=== PATIENT | male | born 1950 | race Caucasian/White ===

== ENCOUNTER 2019-01-11 08:39 | Observation (INO) | payer OTHER, MEDICARE ==
[~2019-01-11] VITALS: Ht 180.3 cm; Wt 97.7 kg
--- NOTE | 2019-01-11 08:39 | NUR ---
PT TO ROOM 9 VIA WC ABLE TO STAND AND TRANSFER SELF TO STRETCHER.
[2019-01-11] MEDS ORDERED: HYDROCHLOROT25 MG PO (08:52)
[2019-01-11 09:14] LABS: HEMATOCRIT 45.9 % (39.0-50.0); HEMOGLOBIN 14.9 g/dl (14.0-18.0); IMMATURE GRANULOCYTES 0.4 % (0.0-5.0); MEAN CELL VOLUME 93.3 fL CALC (80.0-100.0); MEAN CORPUSCULAR HGB 30.3 pG CALC (26.0-32.0); MEAN CORPUSCULAR HGB CONC 32.5 g/L CALC (32.0-36.0); NEUT# 3.81 thou/uL (1.82-7.42); RED BLOOD COUNT 4.92 mill/uL (4.70-6.10); RED CELL DISTRI WIDTH 13.4 % (11.5-15.5)
--- NOTE | 2019-01-11 09:30 | NUR ---
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 VSS. IV SITE HEALTHY. ADVISED OF WAIT TIME FOR TEST RESULTS.
[2019-01-11 09:34] LABS: ALBUMIN 4.3 g/dL (3.2-5.0); ALKALINE PHOSPHATASE 55 u/l (38-126); ANION GAP 13 (6-22 (CALC)); BILIRUBIN, TOTAL 0.4 mg/dL (0.0-1.4); BUN 28 mg/dL (8-23); BUN/CREATININE RATIO 24 (12-20 (CALC)); CARBON DIOXIDE 27 mmol/l (22-30); CHLORIDE 106 mmol/l (95-108); CREATININE 1.2 mg/dL (0.7-1.3); GFR 60 ML/MIN (>=60 (CALC)); GFR FOR AFR.AMER. > 60 ML/MIN (>=60 (CALC)); LIPASE 257 u/l (23-300); POTASSIUM 4.7 mmol/l (3.5-5.1); SGOT/AST 22 u/l (19-48); SODIUM 142 mmol/l (137-146); TOTAL PROTEIN 7.8 g/dL (6.3-8.2)
--- NOTE | 2019-01-11 10:57 | NUR ---
TELEMETRY PLACED ON PT. PT REPORTS NO DISCOMFORT AT THIS TIME.
--- NOTE | 2019-01-11 11:18 | NUR ---
ATTEMPT TO CALL REPORT NURSE UNAVAILABLE
--- NOTE | 2019-01-11 11:39 | NUR ---
REPORT CALLED TO MARTINEZ POLANCO. TELEMETRY IN PLACE. IV SITE HEALTHY. VSS. PT TO [facility] RM 268 VIA IN STABLE CONDITION.
[2019-01-11 11:45] VITALS: BP 135/78
--- NOTE | 2019-01-11 11:45 | NUR ---
RECEIVED INTO ROOM 268 VIA WC FROM ED. PATIENT AMBULATES TO STANDING SCALE FOR ADMISSION WEIGHT, STANCE AND GAIT STABLE. VSS. RESP NON-LABORED. DENIES ANY CHEST PAIN OR DISCOMFORTS AT THIS TIME. SALINE LOCK FLSUHED AND PATENT IN RAC. TELEMTRY SHOWS SR. ORIENTED TO SURROUNDINGS. EXPLAINED USE OF CALL [place] AND BED CONTROLS. DISCUSSED PLAN OF CARE. PATIENT VERBALIZES UNDERSTANDING OF TEACHING. DENIES NEEDS AT THIS TIME. CALL [place]O IN REACH.
[2019-01-11 11:53] VITALS: BP 135/78
--- NOTE | 2019-01-11 14:00 | NUR ---
IN TO VISIT.
[2019-01-11 15:35] VITALS: BP 108/63
--- NOTE | 2019-01-11 16:15 | NUR ---
RESTING IN BED WITHOUT COMPLAINTS.
[2019-01-11 19:11] VITALS: BP 125/73
--- NOTE | 2019-01-11 20:00 | NUR ---
PATIENT RESTING INBED AT THIS TIME-AWAKE ALERT AND ORIENTEDX3. PATIENT DENIES ANY CHEST PAIN, PALPATATIONS, OR SOB AT THIS TIME. TELE MONITOR IN PLACE. IV SITE TO LEFT AC INTACT AND APPEARS HEALTHY AT THIS TIME. SAFETY PRECAUTIONS REINFORCED. CALL LIGHT IN REACH. WILL CONT TO MONITOR.
[2019-01-11 23:30] VITALS: BP 123/74
--- NOTE | 2019-01-12 | NUR ---
PATIENT RSTING IN BED WITH EYES CLOSED AND APPEARS SLEEPING AT THIS TIME. RESP ARE EVEN AND UNLABORED. TELE MONITOR IN PLACE. SERIAL TROP NEG. TELE MONITOR IN PLACE. CALL LIGHT IN REACH. WILL CONT TO MONITOR.
[2019-01-12 03:59] VITALS: BP 94/52
--- NOTE | 2019-01-12 04:15 | NUR ---
APPEARS SLEEPING AT THIS TIME-EYES CLOSED AND RESP EVEN AND UNLABORED. TELE MONITOR IN PLACE. CALL LIGHT IN REACH. WILL CONT TO MONITOR.
[2019-01-12 04:51] LABS: CHOLESTEROL HDL RATIO 6.3 (<4.4 (CALC))
[2019-01-12 07:45] VITALS: BP 120/69
--- NOTE | 2019-01-12 08:00 | NUR ---
PT IS SITTING IN THE SIDE OF THE BED. ASSESSMENT DONE. PT IS A&O X3. PT DENIES PAIN AT THIS TIME. TELE IN PLACE. PT STATED WAITING FOR DOCTOR. TOLD PT DOCTOR WILL BE COMING LATER. PT DENIES ANY NEEDS AT THIS TIME. CALL LIGHT IN REACH.
[2019-01-12 11:00] VITALS: BP 114/73
--- NOTE | 2019-01-12 12:00 | NUR ---
PT IS EATING HIS LUNCH WITH NO S/S OF DISTRESS NOTED. PT WAITING FOR THE DOCTOR. CALL LIGHT IN REACH.
--- NOTE | 2019-01-12 16:00 | NUR ---
PT IS RESTING IN BED WITH NO S/S OF DISTRESS NOTED. PT DENIES PAIN AT THIS TIME. TELE IN PLACE. PT WAITING TO BE D/C. CALL LIGHT IN REACH.
[2019-01-12 16:01] VITALS: BP 134/74
--- NOTE | 2019-01-12 18:44 | NUR ---
Discharge instructions given. Patient verbalizes understanding of same. Discharged in stable condition via Wheelchair to Home with staff. All belongings sent with pt.
== END 2019-01-12 18:00 | disposition home or self-care (01) | DRG 313 ==
LOC: ED 08:39 → ED-I 09:21 → ED 09:21 → ED-I 09:59 → ED 10:22 → MS2 10:23
PROVIDERS: Nurse Practitioner Family; ADMIT Internal Medicine; ATTEND Internal Medicine
DX: R07.9 Chest pain, unspecified (principal); I10 Essential (primary) hypertension; K21.9 Gastro-esophageal reflux disease without esophagitis; F17.200 Nicotine dependence, unspecified, uncomplicated
CPT/HCPCS: G0378

== ENCOUNTER 2020-02-13 12:24 | Emergency (ER) | payer OTHER, MEDICARE ==
[~2020-02-13] VITALS: Ht 180.3 cm; Wt 80.0 kg
[~2020-02-13 12:24] MED LIST: HYDROCHLOROT25 MG PO
[2020-02-13] MEDS ORDERED: METOPROL TAR25 MG PO (13:06)
[2020-02-13] MEDS ORDERED: PRADAXA150 M1 PO (13:07)
[2020-02-13] MEDS ORDERED: SLOW-MAG PO (13:08)
[2020-02-13 13:09] LABS: HEMATOCRIT 45.5 % (39.0-50.0); HEMOGLOBIN 14.7 g/dl (14.0-18.0); IMMATURE GRANULOCYTES 0.3 % (0.0-5.0); MEAN CELL VOLUME 93.4 fL CALC (80.0-100.0); MEAN CORPUSCULAR HGB 30.2 pG CALC (26.0-32.0); MEAN CORPUSCULAR HGB CONC 32.3 g/dL CAL (32.0-36.0); NEUT# 3.14 thou/uL (1.82-7.42); RED BLOOD COUNT 4.87 mill/uL (4.70-6.10); RED CELL DISTRI WIDTH 12.8 % (11.5-15.5)
[2020-02-13] MEDS ORDERED: FLECAINIDE50 MG PO (13:09)
[2020-02-13 13:23] LABS: ALBUMIN 4.3 g/dL (3.2-5.0); ALKALINE PHOSPHATASE 58 u/l (38-126); AMYLASE 101 u/l (30-110); ANION GAP 11 (6-22 (CALC)); BILIRUBIN, TOTAL 0.4 mg/dL (0.0-1.4); BUN 18 mg/dL (8-23); BUN/CREATININE RATIO 16 (12-20 (CALC)); CARBON DIOXIDE 26 mmol/l (22-30); CHLORIDE 107 mmol/l (95-108); CREATININE 1.1 mg/dL (0.7-1.3); GFR > 60 ML/MIN (>=60 (CALC)); GFR FOR AFR.AMER. > 60 ML/MIN (>=60 (CALC)); LIPASE 104 u/l (23-300); POTASSIUM 4.4 mmol/l (3.5-5.1); SGOT/AST 30 u/l (19-48); SODIUM 139 mmol/l (137-146); TOTAL PROTEIN 7.7 g/dL (6.3-8.2)
[2020-02-13 14:23] LABS: URINE BILIRUBIN - DIPSTICK NEGATIVE (NEGATIVE); URINE BLOOD DIPSTICK TRACE-LYSED (NEGATIVE); URINE COLOR YELLOW; URINE GLUCOSE - DIPSTICK NEGATIVE (NEGATIVE); URINE KETONE NEGATIVE (NEGATIVE); URINE LEUK ESTERASE NEGATIVE (NEGATIVE); URINE NITRITE - DIPSTICK NEGATIVE (Negative); URINE PROTEIN - DIPSTICK NEGATIVE (NEG-TRACE); URINE SPECIFIC GRAVITY 1.025; URINE UROBILINOGEN - DIPSTICK 0.2 E.U./dL (0.2)
[2020-02-13] MEDS ORDERED: NAPROXEN500 MG PO (14:47)
[2020-02-13 14:57] VITALS: BP 137/71
[2020-02-13] MEDS ORDERED: ULTRAM50 M1 PO (14:58)
== END 2020-02-13 15:00 | disposition home or self-care (01) | DRG 392 ==
LOC: ED 12:24
PROVIDERS: Emergency Medicine
DX: K57.30 Diverticulosis of large intestine without perforation or abscess without bleeding (principal); I10 Essential (primary) hypertension; I48.91 Unspecified atrial fibrillation
CPT/HCPCS: Q9967